=== PATIENT | female | born 1995 | race Hispanic/Latino ===

== ENCOUNTER → 2017-07-10 | Day surgery (SDC) | payer OTHER ==
[~2017-07-10] MED LIST: FENTANYL CITRATE/PF 100MCG/2 ML INJ ONE; HUMIRA INJ; HYOSCYAMINE SULFATE 0.5 MG/ML AMP ONE; LIDOCAINE HCL 2% LOCAL INJ 5 ML SDV VIAL INJ ONE; MIDAZOLAM HCL 2 MG/2 ML VIAL ONE; PROPOFOL IV EMULSION 10 MG/ML 50 ML VIAL ONE
--- NOTE | 2017-07-10 09:15 | Operative Report ---
DATE OF PROCEDURE: July 10, 2017 PROCEDURE PERFORMED: Colonoscopy with biopsies. INDICATIONS FOR COLONOSCOPY: History of ulcerative colitis, history of bright red blood per rectum. MEDICATION: Patient was done under MAC. Please see anesthesiologist's note. PROCEDURE: With patient in left lateral decubitus position, flexible fiberoptic Olympus colonoscope was inserted into the rectum with ease and advanced all the way to the cecum. The scope was then withdrawn slowly. Mucosa overlying the cecum, ascending colon, transverse colon appeared to be within normal limits. There was some patchy erythema noted in the descending, sigmoid, and rectum, and some biopsies were obtained. The scope was then retroflexed into the distal rectum and the area around the dentate line appeared to be within normal limits. The scope was then straightened out. The rectosigmoid area, as well as the distal rectal area, was decompressed. Scope subsequently withdrawn. Patient tolerated the procedure well. IMPRESSION: History of ulcerative colitis, left colon. Colon appears to be in remission. Follow up histology. Continue current therapy. Job#: [id number] [place]
== END | disposition home or self-care (01) ==
LOC: OR 06:16
PROVIDERS: ATTEND Internal Medicine Gastroenterology
DX: K51.90 Ulcerative colitis, unspecified, without complications (principal)
CPT/HCPCS: 45380; 81025; J1980; J2001; J2250

== ENCOUNTER 2017-12-06 23:16 | Emergency (ER) | payer OTHER ==
[~2017-12-06] VITALS: Ht 162.6 cm; Wt 96.6 kg
[~2017-12-06 23:16] MED LIST changes: -FENTANYL CITRATE/PF 100MCG/2 ML INJ ONE; -HYOSCYAMINE SULFATE 0.5 MG/ML AMP ONE; -LIDOCAINE HCL 2% LOCAL INJ 5 ML SDV VIAL INJ ONE; -MIDAZOLAM HCL 2 MG/2 ML VIAL ONE; -PROPOFOL IV EMULSION 10 MG/ML 50 ML VIAL ONE
[2017-12-06] MEDS ORDERED: ACETAMINOPHEN 1000 MG/100 ML IV STA (23:42)
[2017-12-06] MEDS ORDERED: ONDANSETRON HCL 4 MG ORAL DISINTEGRATING TAB PO PRN (23:45)
[2017-12-06] MEDS ORDERED: SODIUM CHLORIDE 0.9% 1000ML 1,000 ML IV ONE (23:45)
[2017-12-06] MEDS ORDERED: PANTOPRAZOLE 40 MG 10ML VIAL IV STA (23:47)
[2017-12-07 00:04] LABS: BASOPHILS % 0.2 % (0.0-1.0); EOSINOPHILS # (AUTO) 0.1 (0.0-0.4); EOSINOPHILS % 0.6 % (0.0-6.0); HEMATOCRIT 47.2 % (34.2-44.1); HEMOGLOBIN 15.9 g/dL (12.0-16.0); LYMPHOCYTES # (AUTO) 0.4 (1.0-3.2); LYMPHOCYTES % 3.4 % (18.0-39.1); MEAN CORPUSCULAR HGB CONC 33.7 g/dL (31-35); MONOCYTES # (AUTO) 0.6 (0.2-0.8); MONOCYTES % 4.6 % (4.4-11.3); NEUTROPHILS # (AUTO) 11.3 (2.1-6.9); NEUTROPHILS % 90.8 % (38.7-80.0); PLATELET COUNT 331 x10e3/uL (140-360); RED BLOOD COUNT 5.49 x10e6/uL (3.6-5.1); RED CELL DISTRIBUTION WIDTH 12.3 % (11.7-14.4)
[2017-12-07 00:15] LABS: CLARITY,URINE CLEAR (CLEAR); COLOR,URINE YELLOW (YELLOW); KETONES,URINE 1+ (NEGATIVE); LEUKOCYTE ESTERASE ,URINE NEGATIVE (NEGATIVE); NITRITE,URINE NEGATIVE (NEGATIVE); PROTEIN,URINE DIPSTICK TRACE (NEGATIVE)
[2017-12-07 00:16] LABS: BILIRUBIN,URINE NEGATIVE (NEGATIVE); URINE UROBILINOGEN 0.2 mg/dL (0.2 - 1)
[2017-12-07] MEDS ORDERED: DIATRIZOATE MEGL/DIATRIZOA SOD 30 ML BTL PO ONE (00:17)
[2017-12-07 00:21] LABS: BACTERIA,URINE FEW /HPF; EPITHELIAL CELLS,URINE RARE /LPF; MUCUS,URINE MANY (RARE); WBC,URINE (MAN) 0-5 /HPF (0-5)
[2017-12-07 00:22] LABS: ALANINE AMINOTRANSFERASE 33 IU/L (0-55); ALBUMIN 4.5 g/dL (3.5-5.0); ALKALINE PHOSPHATASE 90 IU/L (40-150); AMYLASE 47 U/L (25-125); ANION GAP 15.7 mmol/L (8-16); BLOOD UREA NITROGEN 10 mg/dL (7-26); BUN/CREATININE RATIO 13 (6-25); CARBON DIOXIDE 22 mmol/L (22-29); CHLORIDE 104 mmol/L (98-107); CREATININE, SERUM 0.78 mg/dL (0.57-1.11); EST GLOMERULAR FILTRATION RATE > 60 ML/MIN (60-); GLUCOSE 95 mg/dL (74-118); LIPASE 7 U/L (8-78); POTASSIUM 3.7 mmol/L (3.5-5.1); SODIUM 138 mmol/L (136-145)
[2017-12-07 00:26] LABS: PREGNANCY TEST, URINE NEGATIVE (NEGATIVE)
[2017-12-07] MEDS ORDERED: SODIUM CHLORIDE 0.9% 50ML 50 ML ONE (02:19)
[2017-12-07] MEDS ORDERED: IOPAMIDOL 370 MG/ML 200 ML INFUS..BTL INJ ONE (02:20)
--- NOTE | 2017-12-07 02:39 | Diagnostic Imaging Report ---
EXAM: CT ABDOMEN AND PELVIS with IV CONTRAST DATE: 12/07/2017 11:47 PM Time stamp on Exam: 0210 hours INDICATION: Nausea, vomiting COMPARISON: None TECHNIQUE: The abdomen and pelvis were scanned using a multidetector helical scanner. Coronal and sagittal reformations were obtained. Routine protocol performed. IV Contrast: 100 cc Isovue-370 Oral Contrast: Gastrografin CTDIvol has been reviewed. It is below the limits set by the Radiation Protocol Committee (RPC). FINDINGS: LOWER THORAX: No consolidations LIVER: No masses BILIARY: The gallbladder is unremarkable. No ductal dilation. SPLEEN: No masses PANCREAS: No masses ADRENALS: No nodules KIDNEYS: Symmetric perfusion. No enhancing masses. No hydronephrosis. GI TRACT: No distention, wall thickening or evidence of obstruction. Normal appendix. VESSELS: Unremarkable PERITONEUM/RETROPERITONEUM: No free air or fluid LYMPH NODES: No lymphadenopathy REPRODUCTIVE ORGANS: Unremarkable BLADDER: Unremarkable SOFT TISSUES: Unremarkable BONES: No suspicious bone lesions. IMPRESSION: Normal CT of the abdomen and pelvis. Signed by: Dr. Nataly Brown M.D. on 12/07/2017 2:36 AM
[2017-12-07 02:56] VITALS: BP 128/71
== END 2017-12-07 03:00 | disposition home or self-care (01) ==
LOC: ER 23:16
DX: R10.84 Generalized abdominal pain (principal); R11.2 Nausea with vomiting, unspecified; R19.7 Diarrhea, unspecified; A08.11 Acute gastroenteropathy due to Norwalk agent
CPT/HCPCS: 99283; J7030; Q9967

== ENCOUNTER 2018-01-15 18:02 | Observation (INO) | payer OTHER ==
[~2018-01-15] VITALS: Ht 162.6 cm; Wt 96.6 kg
[2018-01-15] MEDS ORDERED: DIATRIZOATE MEGL/DIATRIZOA SOD 30 ML BTL PO ONE (18:46)
[2018-01-15 18:52] LABS: BILIRUBIN,URINE NEGATIVE (NEGATIVE); CLARITY,URINE CLEAR (CLEAR); COLOR,URINE YELLOW (YELLOW); KETONES,URINE NEGATIVE (NEGATIVE); LEUKOCYTE ESTERASE ,URINE NEGATIVE (NEGATIVE); NITRITE,URINE NEGATIVE (NEGATIVE); PROTEIN,URINE DIPSTICK NEGATIVE (NEGATIVE); URINE UROBILINOGEN 0.2 mg/dL (0.2 - 1)
[2018-01-15 18:57] LABS: BASOPHILS # (AUTO) 0.1 (0.0-0.1); BASOPHILS % 0.6 % (0.0-1.0); EOSINOPHILS # (AUTO) 0.2 (0.0-0.4); EOSINOPHILS % 1.6 % (0.0-6.0); HEMOGLOBIN 14.3 g/dL (12.0-16.0); LYMPHOCYTES # (AUTO) 2.9 (1.0-3.2); LYMPHOCYTES % 28.6 % (18.0-39.1); MEAN CORPUSCULAR HEMOGLOBIN 28.9 pg (28-32); MEAN CORPUSCULAR VOLUME 84.8 fL (81-99); MONOCYTES % 10.3 % (4.4-11.3); NEUTROPHILS # (AUTO) 5.8 (2.1-6.9); NEUTROPHILS % 58.7 % (38.7-80.0); PLATELET COUNT 319 x10e3/uL (140-360); RED BLOOD COUNT 4.95 x10e6/uL (3.6-5.1); RED CELL DISTRIBUTION WIDTH 12.7 % (11.7-14.4)
[2018-01-15 19:02] LABS: BACTERIA,URINE MANY /HPF; EPITHELIAL CELLS,URINE MODERATE /LPF; RENAL EPITHELIAL CELLS,URINE FEW
[2018-01-15 19:19] LABS: ALANINE AMINOTRANSFERASE 31 IU/L (0-55); ALBUMIN 4.1 g/dL (3.5-5.0); ALBUMIN/GLOBULIN RATIO 1.1 (0.8-2.0); ALKALINE PHOSPHATASE 88 IU/L (40-150); ANION GAP 15.5 mmol/L (8-16); BLOOD UREA NITROGEN 7 mg/dL (7-26); BUN/CREATININE RATIO 10 (6-25); CALCIUM 9.4 mg/dL (8.4-10.2); CARBON DIOXIDE 21 mmol/L (22-29); CHLORIDE 105 mmol/L (98-107); CREATININE, SERUM 0.72 mg/dL (0.57-1.11); EST GLOMERULAR FILTRATION RATE > 60 ML/MIN (60-); GLUCOSE 94 mg/dL (74-118); POTASSIUM 4.5 mmol/L (3.5-5.1); SODIUM 137 mmol/L (136-145)
--- NOTE | 2018-01-15 21:40 | Diagnostic Imaging Report ---
EXAM: CT ABDOMEN AND PELVIS with IV CONTRAST DATE: 01/15/2018 6:43 PM Time stamp on Exam: 2109 hours INDICATION: Rectal bleeding COMPARISON: CT of abdomen and pelvis December 07, 2017 TECHNIQUE: The abdomen and pelvis were scanned using a multidetector helical scanner. Coronal and sagittal reformations were obtained. Routine protocol performed. IV Contrast: 100 cc Isovue 370 Oral Contrast: Gastrografin CTDIvol has been reviewed. It is below the limits set by the Radiation Protocol Committee (RPC). FINDINGS: LOWER THORAX: No consolidations LIVER: No masses BILIARY: The gallbladder is unremarkable. No ductal dilation. SPLEEN: No masses PANCREAS: No masses ADRENALS: No nodules KIDNEYS: Symmetric perfusion. No enhancing masses. No hydronephrosis. GI TRACT: No distention, wall thickening or evidence of obstruction. Normal appendix. VESSELS: Unremarkable PERITONEUM/RETROPERITONEUM: No free air or fluid LYMPH NODES: No lymphadenopathy REPRODUCTIVE ORGANS: Unremarkable BLADDER: The uterus and left ovary are unremarkable. Incidental simple 5.7 cm right ovarian cyst SOFT TISSUES: Unremarkable BONES: No suspicious bone lesions. IMPRESSION: Incidental simple 5.7 cm right ovarian cyst. Otherwise normal appearance of the abdomen and pelvis. No CT findings to explain patient's rectal bleeding. Signed by: Dr. Nataly Brown M.D. on 01/15/2018 9:36 PM
[2018-01-15] MEDS ORDERED: SODIUM CHLORIDE 0.9% 50ML 50 ML ONE (22:27)
[2018-01-15] MEDS ORDERED: IOPAMIDOL 370 MG/ML 200 ML INFUS..BTL INJ ONE (22:27)
[2018-01-15 22:41] VITALS: BP 142/63
[2018-01-15 22:50] VITALS: BP 142/63
[2018-01-16 04:00] VITALS: BP 97/49
[2018-01-16 08:17] VITALS: BP 117/58
[2018-01-16 12:23] VITALS: BP 110/55
[2018-01-16 18:15] VITALS: BP 125/62
[2018-01-16 20:00] VITALS: BP 124/69
[2018-01-17] VITALS: BP 133/68
[2018-01-17 04:00] VITALS: BP 119/58
[2018-01-17 05:52] LABS: BASOPHILS # (AUTO) 0.1 (0.0-0.1); BASOPHILS % 1.1 % (0.0-1.0); EOSINOPHILS # (AUTO) 0.2 (0.0-0.4); EOSINOPHILS % 2.4 % (0.0-6.0); HEMATOCRIT 41.4 % (34.2-44.1); HEMOGLOBIN 13.9 g/dL (12.0-16.0); LYMPHOCYTES # (AUTO) 2.9 (1.0-3.2); LYMPHOCYTES % 35.4 % (18.0-39.1); MEAN CORPUSCULAR HEMOGLOBIN 28.5 pg (28-32); MEAN CORPUSCULAR HGB CONC 33.6 g/dL (31-35); NEUTROPHILS % 48.9 % (38.7-80.0); PLATELET COUNT 323 x10e3/uL (140-360); RED BLOOD COUNT 4.87 x10e6/uL (3.6-5.1); RED CELL DISTRIBUTION WIDTH 12.4 % (11.7-14.4)
[2018-01-17 06:20] LABS: ALANINE AMINOTRANSFERASE 34 IU/L (0-55); ALBUMIN 3.6 g/dL (3.5-5.0); ALBUMIN/GLOBULIN RATIO 1.1 (0.8-2.0); ALKALINE PHOSPHATASE 70 IU/L (40-150); ANION GAP 12.2 mmol/L (8-16); BLOOD UREA NITROGEN 10 mg/dL (7-26); BUN/CREATININE RATIO 14 (6-25); CALCIUM 9.1 mg/dL (8.4-10.2); CARBON DIOXIDE 24 mmol/L (22-29); CHLORIDE 106 mmol/L (98-107); CREATININE, SERUM 0.71 mg/dL (0.57-1.11); EST GLOMERULAR FILTRATION RATE > 60 ML/MIN (60-); GLUCOSE 94 mg/dL (74-118); POTASSIUM 4.2 mmol/L (3.5-5.1); SODIUM 138 mmol/L (136-145)
[2018-01-17 09:33] VITALS: BP 111/56
[2018-01-17 10:00] VITALS: BP 111/56
[2018-01-17 12:24] VITALS: BP 102/56
--- NOTE | 2018-01-17 12:58 | Discharge Summary ---
ADMIT DIAGNOSES 1. Hematochezia. 2. Crohn's disease. DISCHARGE DIAGNOSES 1. Hematochezia, resolved. 2. Crohn's disease. 3. Obesity with body mass index 36. HOSPITAL COURSE: This is a 23-year-old woman who has a known history of Crohn's disease. The patient was admitted to [facility] with a diagnosis of hematochezia. Patient's hemoglobin on admission was 14.3 g/dl and on day of discharge was 13.9 g/dl. Her hospitalization was unremarkable. Patient did not require a blood transfusion during this hospitalization. Patient was seen by her box car checker, namely Dr. Guanako Baird, in regards to her Crohn's disease and hematochezia. The patient apparently is on Humira 40 mg intramuscularly every 2 weeks for her Crohn's disease. The patient's brief hospitalization was unremarkable. Patient's condition on discharge was stable. Also during this hospitalization patient had a CT of the abdomen and pelvis with contrast that revealed an incidental simple 5.7 cm right ovarian cyst, otherwise was unremarkable. DISCHARGE MEDICATIONS: Humira 40 mg intramuscularly every 2 weeks. FOLLOWUP INSTRUCTIONS: The patient is instructed to follow up with her new primary care physician, namely Dr. Donald Baird, within 2 weeks. Patient will follow up with Dr. Guanako Baird, her box car checker, in 2 to 3 weeks. LADONNA POTTS MD Job#: [id number] EV cc:MD GUANAKO REESE MD
== END 2018-01-17 14:25 | disposition home or self-care (01) ==
LOC: ER 18:02 → ERHOLD 22:03 → MED/SURG 22:45
DX: K92.1 Melena (principal); K50.90 Crohn's disease, unspecified, without complications; E66.9 Obesity, unspecified; Z68.36 Body mass index [BMI] 36.0-36.9, adult; N83.201 Unspecified ovarian cyst, right side
CPT/HCPCS: 36415 ×2; 74177; 80053 ×2; 81001; 81025; 85025 ×2; 99284; G0378 ×3; Q9967

== ENCOUNTER → 2018-06-22 | Day surgery (SDC) | payer OTHER ==
[~2018-06-22] MED LIST changes: +FENTANYL CITRATE/PF 100MCG/2 ML INJ ONE; +MIDAZOLAM HCL 2 MG/2 ML VIAL ONE; +PROPOFOL IV EMULSION 10 MG/ML 50 ML VIAL ONE
--- OUTSIDE RECORDS SUMMARY | 2018-06-22 11:40 | XMS REPORT | Clinical Summary ---
Author Author [facility] Address Unknown Phone Unavailable Care Team Providers Care Call Center Assistant Name Role Phone Robby Lozano MD PCP Allergies No Known Allergies Medications End Date Status Medication Sig Dispensed Refills Start Date Active HUMIRA PEN 40 mg/0.8 mL 0 PnKt 8 03/05/2018 Discontinued ondansetron (ZOFRAN-ODT) Take 4 mg by 0 4 MG disintegrating mouth every 6 8 tablet (six) hours as needed DISSOLVE FOR NAUSEA AND VOMITING. 03/05/2018 Discontinued pantoprazole (PROTONIX) Take 40 mg by 0 40 MG tablet mouth daily. 8 02/18/2018 butalbital-acetaminophen- Take 1 tablet 30 tablet 0 caffeine (FIORICET, by mouth 8 ESGIC) 50-325-40 mg per every 6 (six) tablet hours as needed for Headaches for up to 10 days. 02/14/2018 predniSONE (DELTASONE) 20 Take 2 10 tablet 0 MG tabletIndications: tablets (40 8 Right-sided headache, mg total) by Generalized headaches mouth daily for 5 days. Active Problems Problem Noted Date Lymphocytosis 03/05/2018 Neck pain 02/10/2018 Overview: None as of 02/2018 Generalized headaches 02/10/2018 Overview: None as of 02/2018 Right-sided headache 02/10/2018 Sacral pain 02/10/2018 Acanthosis nigricans 02/10/2018 Crohn's disease with rectal bleeding 02/09/2018 Overview: Guanako Bird MD, GI Humara injections. Monthly "always on right side. [facility] 12/18/2017 Colonoscopy Early 2016 (aug the February) Dx 08/2016 Encounters Care Team Description Date Type Specialty Robby Lozano MD Appointment 04/27/2018 Telephone Internal Medicine Robby Lozano MD Acanthosis nigricans (Primary Dx); Crohn's disease of both small and large intestine with rectal bleeding (HCC); Generalized headaches; Neck pain; Lymphocytosis; Right-sided headache 03/05/2018 Office Visit Internal Medicine Robby Lozano MD Crohn's disease of both small and large intestine with rectal bleeding (HCC) (Primary Dx); Tinnitus aurium, right; Right-sided headache; Sacral pain; Generalized headaches; Acanthosis nigricans; Neck pain 02/09/2018 Office Visit Internal Medicine Bryon Riggs MD Right-sided headache (Primary Dx) 02/08/2018 Emergency Emergency Medicine [place] PCP 02/05/2018 Telephone Internal Medicine after 06/21/2017 Social History Date Tobacco Use Types Packs/Day Years Used Never Smoker Smokeless Tobacco: Never Used Alcohol Use Drinks/Week oz/Week Comments Yes pt reports that she does not have alcohol often Sex Assigned at Date Recorded Not on file Industry Job Start Date Occupation Not on file Not on file Not on file Travel End Travel History Travel Start No recent travel history available. Last Filed Vital Signs Time Taken Vital Sign Reading 03/05/2018 1:45 PM CDT Blood Pressure 114/66 03/05/2018 1:45 PM CDT Pulse 60 - Temperature - 03/05/2018 1:45 PM CDT Respiratory Rate 14 03/05/2018 1:45 PM CDT Oxygen Saturation 98% - Inhaled Oxygen - Concentration 03/05/2018 1:45 PM CDT Weight 93.2 kg (205 lb 6.4 oz) 03/05/2018 1:45 PM CDT Height 160 cm (5' 3") 03/05/2018 1:45 PM CDT Body Mass Index 36.38 Plan of Treatment Health Maintenance Due Date Last Done Comments INFLUENZA VACCINE 04/13/2018 Procedures Comments Procedure Name Priority Date/Time Associated Diagnosis UA/M W/RFLX CULTURE, ROUT AP Routine 02/10/2018 Crohn's disease of both 10:13 AM CDT small and large intestine with rectal bleeding (HCC) Right-sided headache Generalized headaches Acanthosis nigricans HIV-1 ANTIGEN WITH Routine 02/10/2018 Crohn's disease of both HIV-1/2 ANTIBODY 10:13 AM CDT small and large intestine with rectal bleeding (HCC) Right-sided headache Generalized headaches Acanthosis nigricans MAGNESIUM Routine 02/10/2018 Crohn's disease of both 10:13 AM CDT small and large intestine with rectal bleeding (HCC) Right-sided headache Generalized headaches Acanthosis nigricans VITAMIN B12 Routine 02/10/2018 Crohn's disease of both 10:13 AM CDT small and large intestine with rectal bleeding (HCC) Right-sided headache Generalized headaches Acanthosis nigricans FOLATE, RBC Routine 02/10/2018 Crohn's disease of both 10:13 AM CDT small and large intestine with rectal bleeding (HCC) Right-sided headache Generalized headaches Acanthosis nigricans RPR Routine 02/10/2018 Crohn's disease of both 10:13 AM CDT small and large intestine with rectal bleeding (HCC) Right-sided headache Generalized headaches Acanthosis nigricans C-REACTIVE PROTEIN Routine 02/10/2018 Crohn's disease of both 10:13 AM CDT small and large intestine with rectal bleeding (HCC) Right-sided headache Generalized headaches Acanthosis nigricans LIPID PANEL Routine 02/10/2018 Crohn's disease of both 10:13 AM CDT small and large intestine with rectal bleeding (HCC) Right-sided headache Generalized headaches Acanthosis nigricans HGB A1C WITH EAG ESTIMA Routine 02/10/2018 Crohn's disease of both 10:13 AM CDT small and large intestine with rectal bleeding (HCC) Right-sided headache Generalized headaches Acanthosis nigricans COMPREHENSIVE METABOLIC Routine 02/10/2018 Crohn's disease of both PANEL 10:13 AM CDT small and large intestine with rectal bleeding (HCC) Right-sided headache Generalized headaches Acanthosis nigricans CBC W/PLT COUNT & AUTO Routine 02/10/2018 Crohn's disease of both DIFFERENTIAL 10:13 AM CDT small and large intestine with rectal bleeding (HCC) Right-sided headache Generalized headaches Acanthosis nigricans CT BRAIN WITHOUT IV STAT 02/08/2018 CONTRAST 6:25 PM CDT after 06/21/2017 Results * UA/M W/RFLX CULTURE, ROUT (02/10/2018 10:13 AM CDT) Color, UA YELLOW YELLOW [facility] Appearance CLEAR CLEAR [facility] Specific [place], UA 1.024 1.001 - 1.035 [facility] pH, UA < OR=5.0 5.0 - 8.0 [facility] Glucose, Urine NEGATIVE NEGATIVE [facility] Bilirubin, UA NEGATIVE NEGATIVE [facility] Ketones, UA NEGATIVE NEGATIVE [facility] Blood, UA 1+ (A) NEGATIVE [facility] Protein, UA NEGATIVE NEGATIVE [facility] Nitrite NEGATIVE NEGATIVE [facility] Leukocytes, UA NEGATIVE NEGATIVE [facility] WBC, UA NONE SEEN < OR=5 /HPF [facility] RBC, UA 0-2 < OR=2 /HPF [facility] Squam Epithel, UA NONE SEEN < OR=5 /HPF [facility] Bacteria NONE SEEN NONE SEEN /HPF [facility] Hyaline Casts, UA NONE SEEN NONE SEEN /LPF [facility] Reflexive Urine Culture NO CULTURE INDICATED [facility] Specimen Urine - Urine, Clean Catch Narrative Performed At FASTING:NO [facility] FASTING: NO Resulting Agency Comment Performing Organization Information: Site ID: [id number] Name: [employer] Lab Address: [address] [place] [phone] Director: Kim Flood Performing Organization Address City/State/Zipcode Phone Number [facility] [address] [place] [address] [facility] * HGB A1C WITH EAG ESTIMA ([facility] Only) (02/10/2018 10:13 AM CDT) Hemoglobin A1c 4.9 <5.7 % of total Hgb [facility] Comment: For the purpose of screening for the presence of diabetes: <5.7% Consistent with the absence of diabetes 5.7-6.4%Consistent with increased risk for diabetes (predi abetes) > or=6.5%Consistent with diabetes This assay result is consistent with a decreased risk of diabetes. Currently, no consensus exists regarding use of hemoglobin A1c for diagnosis of diabetes in children. According to [place] Diabetes Association (ADA) guidelines, hemoglobin A1c <7.0% represents optimal control in non- diabetic patients. Different metrics may apply to specific patient populations. Standards of Medical Care in Diabetes(ADA). eAG (mg/dL) 94 (calc) [facility] eAG (mmol/L) 5.2 (calc) [facility] Narrative Performed At FASTING:NO [facility] FASTING: NO Resulting Agency Comment Performing Organization Information: Site ID: [facility] Name: [employer] Lab Address: [address] [place] [phone] Director: Kim Flood Performing Organization Address [facility] Phone Number [employer] [address] [place] [address] [place] * HIV-1 Antigen with HIV-1/2 Antibody (02/10/2018 10:13 AM CDT) HIV AG/AB, 4TH GEN NON-REACTIVE NON-REACTIVE [facility] ([facility]) Comment: HIV-1 antigen and HIV-1/HIV-2 antibodies were not detected. There is no laboratory evidence of HIV infection. PLEASE NOTE: This information has been disclosed to you from records whose confidentiality may be protected by state law.If your state requires such protection, then the state law prohibits you from making any further disclosure of the information without the specific written consent of the person to whom it pertains, or as otherwise permitted by law. A general authorization for the release of medical or other information is NOT sufficient for this purpose. For additional information please refer to http://education.JFDI.Asia.com/faq/MSR503 (This link is being provided for informational/ educational purposes only.) The performance of this assay has not been clinically validated in patients less than 2 years old. Narrative Performed At FASTING:NO [facility] FASTING: NO Resulting Agency Comment Performing Organization Information: Site ID: [facility] Name: [employer] Lab Address: [address] [place] [phone] Director: Kim Flood Performing Organization Address [facility] Phone Number [employer] [address] [place] [address] [facility] * C-Reactive Protein (02/10/2018 10:13 AM CDT) C-REACTIVE PROTEIN 1.3 <8.0 mg/L [facility] Specimen Blood Narrative Performed At FASTING:NO [facility] FASTING: NO Resulting Agency Comment Performing Organization Information: Site ID: [facility] Name: [employer] Lab Address: [address] [place] [phone] Director: Kim Flood Performing Organization Address [facility] Phone Number [facility] [address] [place] [address] [facility] * RPR (02/10/2018 10:13 AM CDT) RPR NON-REACTIVE NON-REACTIVE [facility] Specimen Blood Narrative Performed At FASTING:NO [facility] FASTING: NO Resulting Agency Comment Performing Organization Information: Site ID: [facility] Name: [employer] Lab Address: [address] [place] [phone] Director: Kim Flood Performing Organization Address [facility] Phone Number [facility] [address] [place] [address] [facility] * CBC W/PLT COUNT & AUTO DIFFERENTIAL (02/10/2018 10:13 AM CDT) WBC 15.8 (H) 3.8 - 10.8 Thousand/uL [facility] RBC 4.95 3.80 - 5.10 Million/uL [facility] Hemoglobin 14.6 11.7 - 15.5 g/dL [facility] Hematocrit 42.2 35.0 - 45.0 % [facility] MCV 85.3 80.0 - 100.0 fL [facility] MCH 29.5 27.0 - 33.0 pg [facility] MCHC 34.6 32.0 - 36.0 g/dL [facility] RDW 12.9 11.0 - 15.0 % [facility] Platelets 387 140 - 400 Thousand/uL [facility] MPV 9.3 7.5 - 12.5 fL [facility] # Neutros 12,988 (H) 1,500 - 7,800 cells/uL [facility] # Lymphs 1,975 850 - 3,900 cells/uL [facility] # Monos 743 200 - 950 cells/uL [facility] # Eos 16 15 - 500 cells/uL [facility] # Baso 79 0 - 200 cells/uL [facility] % Neutros 82.2 % [facility] % Lymphs 12.5 % [facility] % Monos 4.7 % [facility] % Eos 0.1 % [facility] % Baso 0.5 % [facility] Specimen Blood Narrative Performed At FASTING:NO [facility] FASTING: NO Resulting Agency Comment Performing Organization Information: Site ID: [id number] Name: [employer] Lab Address: [address] [place] [phone] Director: Kim Flood Performing Organization Address [facility] Phone Number [facility] [address] [place] [address] [facility] * Magnesium (02/10/2018 10:13 AM CDT) Magnesium, Serum 1.6 1.5 - 2.5 mg/dL [facility] Specimen Blood Narrative Performed At FASTING:NO [facility] FASTING: NO Resulting Agency Comment Performing Organization Information: Site ID: [place] Name: [employer] Lab Address: [address] [place] [phone] Director: Kim Flood Performing Organization Address [facility] Phone Number [facility] [address] [place] [address] [facility] * Folate RBC (02/10/2018 10:13 AM CDT) Folate, RBC 622 >280 ng/mL RBC [facility] Specimen Blood Narrative Performed At FASTING:NO [facility] FASTING: NO Resulting Agency Comment Performing Organization Information: Site ID: [place] Name: [employer] Lab Address: [address] [place] [phone] Director: Kim Flood Performing Organization Address [facility] Phone Number [facility] [address] [place] [address] [facility] * Vitamin B12 (02/10/2018 10:13 AM CDT) Vitamin B12 326 200 - 1,100 pg/mL [facility] Comment: Please Note: Although the reference range for vitamin B12 is 200-1100 pg/mL, it has been reported that between 5 and 10% of patients with values between 200 and 400 pg/mL may experience neuropsychiatric and hematologic abnormalities due to occult B12 deficiency; less than 1% of patients with values above 400 pg/mL will have symptoms. Specimen Blood Narrative Performed At FASTING:NO [facility] FASTING: NO Resulting Agency Comment Performing Organization Information: Site ID: [place] Name: [employer] Lab Address: [address] [place], [place] [phone] Director: Kim Flood Performing Organization Address [facility] Phone Number [facility] [address] [place] [address] [facility] * Lipid panel (02/10/2018 10:13 AM CDT) Cholesterol, Total 180 <200 mg/dL [facility] HDL Cholesterol 50 (L) >50 mg/dL [facility] Triglycerides 76 <150 mg/dL [facility] LDL Cholesterol 113 (H) mg/dL (calc) [facility] Comment: Reference range: <100 Desirable range <100 mg/dL for primary prevention; <70 mg/dL for patients with CHD or diabetic patients with > or=2 CHD risk factors. LDL-C is now calculated using the Song calculation, which is a validated novel method providing better accuracy than the Friedewald equation in the estimation of LDL-C. Laron PATINO et al. JOSE CARLOS. 2013;310(19): 7870-3165 (http://education.Searchandise Commerce.Swagsy/faq/RJQ874) Chol/HDL Ratio 3.6 <5.0 (calc) [facility] Non-HDL Cholesterol 130 (H) <130 mg/dL (calc) [facility] Comment: For patients with diabetes plus 1 major ASCVD risk factor, treating to a non-HDL-C goal of <100 mg/dL (LDL-C of <70 mg/dL) is considered a therapeutic option. Specimen Blood Narrative Performed At FASTING:NO [facility] FASTING: NO Resulting Agency Comment Performing Organization Information: Site ID: [facility] Name: [employer] Lab Address: [address] [place] [phone] Director: Kim Flood Performing Organization Address [facility] Phone Number [facility] [address] [place] [address] [facility] * Comprehensive metabolic panel (02/10/2018 10:13 AM CDT) Glucose 110 65 - 139 mg/dL [facility] Comment: Non-fasting reference interval BUN 9 7 - 25 mg/dL [facility] Creatinine 0.58 0.50 - 1.10 mg/dL [facility] eGFR If NonAfricn Am 130 > OR=60 mL/min/1.73m2 [facility] eGFR If Africn Am 151 > OR=60 mL/min/1.73m2 [facility] BUN/Creatinine Ratio NOT APPLICABLE 6 - 22 (calc) [facility] Sodium 136 135 - 146 mmol/L [facility] Potassium, Serum 4.1 3.5 - 5.3 mmol/L [facility] Chloride 104 98 - 110 mmol/L [facility] Carbon Dioxide, Total 25 20 - 31 mmol/L [facility] Calcium, Serum 9.4 8.6 - 10.2 mg/dL [facility] Protein, Total, Serum 7.5 6.1 - 8.1 g/dL [facility] Albumin 4.3 3.6 - 5.1 g/dL [facility] GLOBULIN ([facility]) 3.2 1.9 - 3.7 g/dL (calc) [facility] Albumin Globulin Ratio 1.3 1.0 - 2.5 (calc) [facility] Bilirubin, Total 0.9 0.2 - 1.2 mg/dL [facility] Alkaline Phosphatase, S 76 33 - 115 U/L [facility] AST (SGOT) 14 10 - 30 U/L [facility] ALT (SGPT) 17 6 - 29 U/L [facility] Specimen Blood Narrative Performed At FASTING:NO [facility] FASTING: NO Resulting Agency Comment Performing Organization Information: Site ID: [facility] Name: [employer] Lab Address: [address] [place] [phone] Director: Kim Flood Performing Organization Address City/State/Zipcode Phone Number [facility] [address] [place] [address] [facility] * CT brain without IV contrast (02/08/2018 6:25 PM CDT) Narrative Performed At FINAL REPORT [email or web address] Patient: Bre Bruno : 1995 Downtime Accession number: [id number] CT, BRAIN, WITHOUT CONTRAST CLINICAL INDICATION:Head trauma, ataxia COMPARISON: None TECHNIQUE:Noncontrast axial CT imaging of the brain and skull. DOSE REDUCTION: Dose modulation, iterative reconstruction, and/or weight-based adjustment of the mA/kV was utilized to reduce the radiation dose to as low as reasonably achievable. FINDINGS: Cerebral parenchyma: Unremarkable. Midline structures: Normally positioned. Cerebellum and brainstem: Normal. Ventricles: Normal volume. Extra-axial spaces: Unremarkable. Calvarium and skull base: Intact. Paranasal sinuses and mastoid air cells: Visible chambers are clear. Orbital contents: Included portions unremarkable. Additional findings: None. IMPRESSION: No acute or traumatic intracranial abnormality. Downtime procedure notification to Dr. Riggs of the [facility] at 1755 hours on 02/08/18 Signed: JR López Robert MD Report Verified Date/Time:02/08/2018 19:49:31 Reading Location: [facility] Radiology Reading Room Procedure Note Interface, External Ris In - 02/08/2018 7:51 PM CDT FINAL REPORT Patient: Bre Bruno : 1995 Downtime Accession number: [id number] CT, BRAIN, WITHOUT CONTRAST CLINICAL INDICATION: Head trauma, ataxia COMPARISON: None TECHNIQUE: Noncontrast axial CT imaging of the brain and skull. DOSE REDUCTION: Dose modulation, iterative reconstruction, and/or weight-based adjustment of the mA/kV was utilized to reduce the radiation dose to as low as reasonably achievable. FINDINGS: Cerebral parenchyma: Unremarkable. Midline structures: Normally positioned. Cerebellum and brainstem: Normal. Ventricles: Normal volume. Extra-axial spaces: Unremarkable. Calvarium and skull base: Intact. Paranasal sinuses and mastoid air cells: Visible chambers are clear. Orbital contents: Included portions unremarkable. Additional findings: None. IMPRESSION: No acute or traumatic intracranial abnormality. Downtime procedure notification to Dr. Riggs of the [facility] at 1755 hours on 02/08/18 Signed: JR López Robert MD Report Verified Date/Time: 02/08/2018 19:49:31 Reading Location: [facility] Radiology Reading Room Performing Organization Address City/State/Zipcode Phone Number RIS after 06/21/2017 Insurance Payer Benefit Subscriber ID Type Phone Address Plan / Group AETNA - [employer] CARE AETNA OPEN xxxxxxxxxx HMO/POS ACCESS HMO NAP
[2018-06-22 14:30] VITALS: BP 110/71
--- NOTE | 2018-06-22 14:36 | Operative Report ---
DATE OF PROCEDURE: June 22, 2018 REFERRING PHYSICIAN: Dr. Nito Colbert PROCEDURE PERFORMED: Colonoscopy with biopsies. INDICATIONS FOR PROCEDURE: Patient with history of ulcerative colitis. The patient is off her Humira. She is in for reassessment of her colon. MEDICATION: Patient was done under MAC. Please see anesthesiologist's note. PROCEDURE: With the patient in the left lateral decubitus position, the flexible fiberoptic Olympus colonoscope was inserted into the rectum with ease and advanced all the way to the cecum. It was then withdrawn slowly. Mucosa overlying the cecum, ascending colon, transverse colon, and descending colon appeared to be within normal limits. The mucosa overlying the sigmoid and rectum revealed some loss of haustral markings, and mild to moderate inflammatory changes. Multiple biopsies were obtained. The scope was then retroflexed into the distal rectum, and the area around the dentate line appeared to be within normal limits. The scope was then straightened out. It was subsequently withdrawn. Patient tolerated the procedure well. IMPRESSION: Proctosigmoiditis, mild. Biopsies obtained. Follow up histology. Initiate VSL #3 one p.o. daily. Job#: [id number] RI cc: NITO COLBERT MD
== END | disposition home or self-care (01) ==
LOC: OR 11:36
PROVIDERS: ATTEND Internal Medicine Gastroenterology
DX: K51.20 Ulcerative (chronic) proctitis without complications (principal); K63.89 Other specified diseases of intestine; Z12.11 Encounter for screening for malignant neoplasm of colon; Z85.038 Personal history of other malignant neoplasm of large intestine
CPT/HCPCS: 45380; 81025; J2250; 45378

== ENCOUNTER 2024-06-04 19:47 | Emergency (ER) | payer OTHER ==
[~2024-06-04] VITALS: Ht 160 cm; Wt 81.6 kg
[~2024-06-04 19:47] MED LIST changes: -FENTANYL CITRATE/PF 100MCG/2 ML INJ ONE; -MIDAZOLAM HCL 2 MG/2 ML VIAL ONE; -PROPOFOL IV EMULSION 10 MG/ML 50 ML VIAL ONE
[2024-06-04 20:28] LABS: BASOPHILS # (AUTO) 0.1 (0.0-0.1); BASOPHILS % 0.6 % (0.0-1.0); EOSINOPHILS # (AUTO) 0.6 (0.0-0.4); EOSINOPHILS % 6.9 % (0.0-6.0); HEMATOCRIT 49.7 % (34.2-44.1); HEMOGLOBIN 16.8 g/dL (12.0-16.0); LYMPHOCYTES # (AUTO) 1.6 (1.0-3.2); LYMPHOCYTES % 19.6 % (18.0-39.1); MEAN CORPUSCULAR HEMOGLOBIN 29.9 pg (28-32); MEAN CORPUSCULAR HGB CONC 33.8 g/dL (31-35); MEAN CORPUSCULAR VOLUME 88.6 fL (81-99); MONOCYTES # (AUTO) 1.4 (0.2-0.8); MONOCYTES % 16.6 % (4.4-11.3); NEUTROPHILS # (AUTO) 4.6 (2.1-6.9); NEUTROPHILS % 56.1 % (38.7-80.0); PLATELET COUNT 420 x10e3/uL (140-360); RED BLOOD COUNT 5.61 x10e6/uL (3.6-5.1); RED CELL DISTRIBUTION WIDTH 12.4 % (11.7-14.4); WHITE BLOOD COUNT 8.23 x10e3/uL (4.8-10.8)
[2024-06-04 20:30] LABS: BILIRUBIN,URINE NEGATIVE (NEGATIVE); CLARITY,URINE SL CLOUDY (CLEAR); COLOR,URINE YELLOW (YELLOW); GLUCOSE, URINE NEGATIVE (NEGATIVE); KETONES,URINE 2+ (NEGATIVE); LEUKOCYTE ESTERASE ,URINE NEGATIVE (NEGATIVE); NITRITE,URINE NEGATIVE (NEGATIVE); PH,URINE 6.5 (5 - 7); PROTEIN,URINE DIPSTICK NEGATIVE (NEGATIVE); URINE UROBILINOGEN 0.2 mg/dL (0.2 - 1)
[2024-06-04 20:31] LABS: PREGNANCY TEST, URINE NEGATIVE (NEGATIVE)
[2024-06-04 20:42] LABS: BACTERIA,URINE FEW /HPF; EPITHELIAL CELLS,URINE FEW /LPF; RBC,URINE 0-5 /HPF (0-5)
[2024-06-04 20:48] LABS: ALBUMIN 4.2 g/dL (3.5-5.0); ALBUMIN/GLOBULIN RATIO 1.1 (0.8-2.0); ANION GAP 14.5 mmol/L (8-16); BILIRUBIN,TOTAL 0.7 mg/dL (0.2-1.2); CALCIUM 9.4 mg/dL (8.4-10.2); CREATININE, SERUM 1.01 mg/dL (0.57-1.11); POTASSIUM 3.5 mmol/L (3.5-5.1); TOTAL PROTEIN 7.9 g/dL (6.5-8.1)
[2024-06-04] MEDS: ONDANSETRON HCL INJ 2MG/ML 2ML 2 MG/ML VIAL IV STA (20:57)
[2024-06-04] MEDS: SODIUM CHLORIDE 0.9% 1000ML 1,000 ML IV STA (20:57)
[2024-06-04] MEDS: METHYLPREDNISOLONE SOD SUCC 125 MG/2ML VIAL IV SCH (20:57)
[2024-06-04] MEDS: Morphine 4mg INJECTION 4 MG/ML INJ IV STA (20:57)
[2024-06-04] MEDS ORDERED: IOPAMIDOL 370 MG/ML 100 ML INFUS..BTL INJ ONE (21:04)
[2024-06-04] MEDS ORDERED: ONDANSETRON ODT4 MG PO (21:49)
[2024-06-04] MEDS ORDERED: AMOX TR-K CLV1 EAC2 PO (21:49)
[2024-06-04] MEDS ORDERED: ACETAMINOPHEN-1 EAC4 PO (21:49)
[2024-06-04] MEDS ORDERED: PREDNISONE20 MG PO (21:49)
[2024-06-04 22:00] VITALS: PULSE 88; RESP 16; TEMP 98.2; O2SAT 100
== END 2024-06-04 22:09 | disposition home or self-care (01) ==
LOC: ER 19:55
DX: R10.31 Right lower quadrant pain (principal); K50.90 Crohn's disease, unspecified, without complications
CPT/HCPCS: 36415; 74177; 80053; 81001; 81025; 83690; 85025; 99284; J2270; J2405; J2919; J7030; Q9967

== ENCOUNTER 2024-08-05 16:18 | Inpatient (IN) | payer OTHER ==
[~2024-08-05] VITALS: Ht 162.6 cm; Wt 90.7 kg
[~2024-08-05 16:18] MED LIST changes: +ACETAMINOPHEN-1 EAC4 PO; +AMOX TR-K CLV1 EAC2 PO; +ONDANSETRON ODT4 MG PO; +PREDNISONE20 MG PO
[2024-08-05 16:30] VITALS: TEMP 98.8
[2024-08-05 17:19] LABS: CLARITY,URINE CLEAR (CLEAR); COLOR,URINE YELLOW (YELLOW); GLUCOSE, URINE NEGATIVE (NEGATIVE); LEUKOCYTE ESTERASE ,URINE NEGATIVE (NEGATIVE); NITRITE,URINE NEGATIVE (NEGATIVE); PH,URINE 5.5 (5 - 7); PROTEIN,URINE DIPSTICK NEGATIVE (NEGATIVE)
[2024-08-05 17:20] LABS: BILIRUBIN,URINE NEGATIVE (NEGATIVE); KETONES,URINE TRACE (NEGATIVE); URINE UROBILINOGEN 0.2 mg/dL (0.2 - 1)
[2024-08-05 17:21] LABS: BACTERIA,URINE FEW /HPF; RBC,URINE 0-5 /HPF (0-5); WBC,URINE (MAN) 0-5 /HPF (0-5)
[2024-08-05 17:22] LABS: EPITHELIAL CELLS,URINE FEW /LPF; MUCUS,URINE FEW (RARE)
[2024-08-05 17:25] LABS: PREGNANCY TEST, URINE NEGATIVE (NEGATIVE)
[2024-08-05 17:31] LABS: BASOPHILS # (AUTO) 0.1 (0.0-0.1); BASOPHILS % 0.9 % (0.0-1.0); EOSINOPHILS # (AUTO) 1.4 (0.0-0.4); HEMATOCRIT 31.3 % (34.2-44.1); LYMPHOCYTES # (AUTO) 2.6 (1.0-3.2); LYMPHOCYTES % 22.2 % (18.0-39.1); MEAN CORPUSCULAR HEMOGLOBIN 28.2 pg (28-32); MEAN CORPUSCULAR HGB CONC 31.9 g/dL (31-35); MEAN CORPUSCULAR VOLUME 88.4 fL (81-99); MONOCYTES # (AUTO) 0.9 (0.2-0.8); MONOCYTES % 7.7 % (4.4-11.3); NEUTROPHILS # (AUTO) 6.7 (2.1-6.9); PLATELET COUNT 513 x10e3/uL (140-360); RED BLOOD COUNT 3.54 x10e6/uL (3.6-5.1); RED CELL DISTRIBUTION WIDTH 12.2 % (11.7-14.4)
[2024-08-05] MEDS: SODIUM CHLORIDE 0.9% 1000ML 1,000 ML IV STA (17:31)
[2024-08-05] MEDS: ONDANSETRON HCL INJ 2MG/ML 2ML 2 MG/ML VIAL IV STA (17:31)
[2024-08-05 17:53] LABS: ALBUMIN 3.2 g/dL (3.5-5.0); ANION GAP 13.3 mmol/L (8-16); BILIRUBIN,TOTAL 0.3 mg/dL (0.2-1.2); CALCIUM 8.9 mg/dL (8.4-10.2); CREATININE, SERUM 0.74 mg/dL (0.57-1.11); POTASSIUM 4.3 mmol/L (3.5-5.1); TOTAL PROTEIN 6.4 g/dL (6.5-8.1)
[2024-08-05] MEDS: SODIUM CHLORIDE 0.9% 1000ML 1,000 ML IV SCH (21:13)
[2024-08-05 21:30] VITALS: PULSE 89; RESP 16
[2024-08-05 22:17] VITALS: BP 114/59; PULSE 79; RESP 18; TEMP 98.7; O2SAT 99
[2024-08-05 23:48] VITALS: BP 114/59; PULSE 79; RESP 18; TEMP 98.7; O2SAT 99
[2024-08-05 23:53] VITALS: BP 114/59; PULSE 79; RESP 18; TEMP 98.7; O2SAT 99
[2024-08-06] MEDS ORDERED: SODIUM CHLORIDE 0.9% 100 ML ONE (02:52)
[2024-08-06] MEDS ORDERED: IOPAMIDOL 370 MG/ML 100 ML INFUS..BTL INJ ONE (02:52)
[2024-08-06 03:24] VITALS: BP 127/62; PULSE 69; RESP 18; TEMP 98; O2SAT 98
[2024-08-06 05:30] LABS: HEMATOCRIT 31.4 % (34.2-44.1); HEMOGLOBIN 9.4 g/dL (12.0-16.0)
[2024-08-06 08:28] VITALS: BP 130/78; PULSE 67; RESP 20; TEMP 98.4; O2SAT 100
[2024-08-06] MEDS: Morphine 4mg INJECTION 4 MG/ML INJ IV ONE (08:52)
[2024-08-06] MEDS: ONDANSETRON HCL INJ 2MG/ML 2ML 2 MG/ML VIAL IV STA (08:53)
[2024-08-06 12:13] VITALS: BP 140/75; PULSE 68; RESP 20; TEMP 99.1; O2SAT 97
[2024-08-06 12:46] LABS: HEMATOCRIT 30.5 % (34.2-44.1); HEMOGLOBIN 9.1 g/dL (12.0-16.0)
[2024-08-06 16:54] VITALS: BP 127/74; PULSE 77; RESP 19; TEMP 98.3; O2SAT 99
[2024-08-06] MEDS: METHYLPREDNISOLONE SOD SUCC 125 MG/2ML VIAL IV SCH (17:58)
[2024-08-06] MEDS: METRONIDAZOLE 500MG/NS 100ML 100 ML IV SCH (17:58)
[2024-08-06 20:00] VITALS: BP 127/74; PULSE 77; RESP 19; TEMP 98.3; O2SAT 99
[2024-08-06 20:28] VITALS: BP_SYST 153; PULSE 78; RESP 16; TEMP 98.4; O2SAT 99
[2024-08-07 00:24] VITALS: BP 96/65; PULSE 87; RESP 18; TEMP 98.5; O2SAT 100
[2024-08-07 04:06] VITALS: BP 136/77; PULSE 95; RESP 18; TEMP 98.5; O2SAT 100
[2024-08-07 06:08] LABS: BASOPHILS % 0.2 % (0.0-1.0); HEMATOCRIT 31.4 % (34.2-44.1); HEMOGLOBIN 9.5 g/dL (12.0-16.0); LYMPHOCYTES # (AUTO) 0.7 (1.0-3.2); MEAN CORPUSCULAR HEMOGLOBIN 27.6 pg (28-32); MEAN CORPUSCULAR HGB CONC 30.3 g/dL (31-35); MEAN CORPUSCULAR VOLUME 91.3 fL (81-99); MONOCYTES # (AUTO) 0.1 (0.2-0.8); MONOCYTES % 0.6 % (4.4-11.3); NEUTROPHILS # (AUTO) 11.4 (2.1-6.9); NEUTROPHILS % 92.9 % (38.7-80.0); PLATELET COUNT 482 x10e3/uL (140-360); RED BLOOD COUNT 3.44 x10e6/uL (3.6-5.1); RED CELL DISTRIBUTION WIDTH 12.1 % (11.7-14.4); WHITE BLOOD COUNT 12.26 x10e3/uL (4.8-10.8)
[2024-08-07 06:34] LABS: BLOOD UREA NITROGEN < 5 mg/dL (7-26); CALCIUM 8.7 mg/dL (8.4-10.2); CARBON DIOXIDE 18 mmol/L (22-29); CHLORIDE 108 mmol/L (98-107); CREATININE, SERUM 0.65 mg/dL (0.57-1.11); EST GLOMERULAR FILTRATION RATE 122 ML/MIN (>=60); GLUCOSE 121 mg/dL (74-118); SODIUM 136 mmol/L (136-145)
[2024-08-07 06:35] LABS: BUN/CREATININE RATIO 8 (6-25)
[2024-08-07 08:00] VITALS: BP 129/49; PULSE 77; RESP 18; TEMP 98.5; O2SAT 98
[2024-08-07 16:00] VITALS: BP 129/84; PULSE 96; RESP 18; TEMP 98.5; O2SAT 98
[2024-08-07] MEDS ORDERED: PREDNISONE20 MG PO (18:02)
[2024-08-07] MEDS ORDERED: FEROSUL325 MG PO (18:02)
[2024-08-07] MEDS ORDERED: AMOX TR-K CLV1 EAC2 PO (18:02)
== END 2024-08-07 19:31 | disposition home or self-care (01) | DRG 386 ==
LOC: ER 17:44 → ERHOLD 20:19 → MED/SURG2 22:29
PROVIDERS: ADMIT Internal Medicine; ATTEND Internal Medicine
DX: K50.911 Crohn's disease, unspecified, with rectal bleeding (principal); D62 Acute posthemorrhagic anemia; K52.89 Other specified noninfective gastroenteritis and colitis; Z79.52 Long term (current) use of systemic steroids
CPT/HCPCS: 36415; 74174; 80048; 80053; 81001; 81025; 85014; 85018; 85025; 99284; J0696; J2405; J2470; J2919; J7030; J7050; Q9967